=== PATIENT | male | born 2000 | race Caucasian/White ===

== ENCOUNTER 2021-07-14 23:28 | Emergency (ER) | payer OTHER, SELFPAY ==
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
[2021-07-14 23:34] VITALS: BP 139/72; PULSE 65; RESP 16; TEMP 36.4; O2SAT 97
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
[2021-07-15 00:57] VITALS: BP 122/64; PULSE 69; RESP 14; O2SAT 98
== END 2021-07-15 00:55 | disposition home or self-care (01) ==
PROVIDERS: Emergency Provider Emergency Medicine
DX: R04.0 Epistaxis (principal); S00.83XA Contusion of other part of head, initial encounter; Y04.0XXA Assault by unarmed brawl or fight, initial encounter
CPT/HCPCS: 70450; 70486; 72125; 99284

== ENCOUNTER 2021-12-30 19:34 | Emergency (ER) | payer OTHER, SELFPAY ==
[2021-12-30 19:36] VITALS: BP 141/75; PULSE 73; RESP 16; TEMP 36.7; O2SAT 97
--- NOTE | 2021-12-30 20:15 | ED.EAR ---
HPI - Ear Problem General Chief complaint: Ear Stated complaint: Left ear pain, ringing Time Seen by Provider: 12/30/21 19:40 Source: patient, family and RN notes reviewed History of Present Illness HPI Narrative: 21-year-old male presents emerge department for evaluation of persistent left ear pain. Patient states that he has had issues with earwax and impaction. Patient states he was attempting to clean up his left ear with a Q-tip when he feels that he worsened his left ear pain. Patient states his hearing is muffled in that ear. Patient denies any sharp pain but states he does have increased pressure. Patient denies any bleeding or discharge from the left ear. MD Complaint: ear pain Related Data Home Medications Medication Instructions Recorded Confirmed fluoxetine 20 mg PO DAILY 07/14/21 Allergies Allergy/AdvReac Type Severity Reaction Status Date / Time No Known Allergies Allergy Mild Verified 07/14/21 23:45 Review of Systems Review of Systems: CONSTITUTIONAL: Denies fever, chills, or sweats. EYES: Denies visual changes, redness, or discharge. ENT: Left ear pain CARDIOVASCULAR: Denies chest pain, palpitations, or edema. RESPIRATORY: Denies cough or dyspnea. GASTROINTESTINAL: Denies abdominal pain, nausea, vomiting, or diarrhea. GENITOURINARY: Denies dysuria or hematuria. SKIN: Denies rash or itching. All systems reviewed & are unremarkable except as noted in HPI and below Exam Narrative: APPEARANCE: Well appearing, no pain, no distress, well-nourished. HEAD: normocephalic, atraumatic. EYES: PERRLA/EOMI, conjunctivae clear. NOSE: Normal no drainage EARS: Left ear is initially impacted with cerumen. After irrigation TM is well-appearing. Mild erythema with no perforation. No fluid behind the TM. THROAT: Pharynx clear, no exudate. Course Course Emergency Course: After irrigation of the left ear with significant cerumen removed patient states that his symptoms are resolved. Patient denies any complaint. Patient states that his hearing is back to baseline. Patient was encouraged to have close follow-up with primary care physician. All questions concerns were addressed. Vital Signs Vital signs: Vital Signs Temperature 98.1 F 12/30/21 19:36 Pulse Rate 73 12/30/21 19:36 Respiratory Rate 16 12/30/21 19:36 Blood Pressure 141/75 H 12/30/21 19:36 Pulse Oximetry 97 12/30/21 19:36 Temperature 98.1 F 12/30/21 19:36 Pulse Rate 73 12/30/21 19:36 Respiratory Rate 14 12/30/21 20:54 Blood Pressure 141/75 H 12/30/21 19:36 Pulse Oximetry 97 12/30/21 19:36 Medical Decision Making Vital Signs Vital Signs: Vital Signs Temperature 98.1 F 12/30/21 19:36 Pulse Rate 73 12/30/21 19:36 Respiratory Rate 16 12/30/21 19:36 Blood Pressure 141/75 H 12/30/21 19:36 Pulse Oximetry 97 12/30/21 19:36 Temperature 98.1 F 12/30/21 19:36 Pulse Rate 73 12/30/21 19:36 Respiratory Rate 14 12/30/21 20:54 Blood Pressure 141/75 H 12/30/21 19:36 Pulse Oximetry 97 12/30/21 19:36 Discharge Plan Discharge Clinical Impression: Cerumen impaction Qualifiers: Laterality: left Qualified Code(s): H61.22 - Impacted cerumen, left ear Patient Disposition: Home, Self-Care Condition: Stable Instructions: Antibiotic Form, Carbamide Peroxide (Into the ear) Additional Instructions: Have close follow-up with your primary care physician. If you have any worsening symptoms or if you have any questions or concerns then please call or return to the emergency department Prescriptions: No Action fluoxetine 20 mg capsule 20 mg PO DAILY RF: 0 Follow-up/Referrals: Les Crespo MD [Primary Care Provider] -
[2021-12-30] MEDS: HYDROGEN PEROXIDE 3% SOLN(*SP) 473 ML BOTTLE (20:30)
[2021-12-30 20:54] VITALS: RESP 14
== END 2021-12-30 20:54 | disposition home or self-care (01) ==
PROVIDERS: Emergency Provider Emergency Medicine; PCP Emergency Medicine
DX: H61.22 Impacted cerumen, left ear (principal)
CPT/HCPCS: 69209; 99282; A9270

== ENCOUNTER 2023-06-27 21:45 | Emergency (ER) | payer OTHER, SELFPAY ==
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
[2023-06-27 21:58] VITALS: BP 138/71; PULSE 78; RESP 16; TEMP 36.4; O2SAT 97
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
[2023-06-28 01:43] VITALS: BP 130/62; PULSE 78; RESP 18; O2SAT 99
== END 2023-06-28 01:45 | disposition home or self-care (01) ==
LOC: ANHED 06-28 01:35
PROVIDERS: Emergency Provider Emergency Medicine; PCP Internal Medicine
DX: S09.90XA Unspecified injury of head, initial encounter (principal); M54.2 Cervicalgia; V89.2XXA Person injured in unspecified motor-vehicle accident, traffic, initial encounter
CPT/HCPCS: 70450; 72125; 99284

== ENCOUNTER 2023-08-01 01:04 | Day surgery (SDC) | payer OTHER, SELFPAY ==
[2023-07-25 12:22] VITALS: BMI 29.1
--- NOTE | 2023-07-25 12:33 | PC.NURSE ---
Report to the Outpatient Waiting Room, entrance under the green pavilion located off [facility], at time 0700 on date 08/01/23. Planned Procedure Time: 0900. Time changes happen often and if your time is changed the preop area will call you the afternoon before. - You and your visitor will be asked to self-screen and do not enter if you have any COVID symptoms. - A mask is optional within the hospital at this time. Patients may have clear liquids (water, carbonated beverages, clear teas, apple juice) until 3 hours prior to surgery with a maximum of 20 ounces. - No food from midnight until time of surgery Take the following medications with a SIP of water the morning of surgery: FLUOXETINE DO NOT STOP ANY OF YOUR OTHER PRESCRIPTION MEDICATIONS PRIOR TO SURGERY ?EXCEPT THE FOLLOWING Medications to discontinue per physician: N/A Date to take last dose: N/A Please no make-up, nail cook islander, hairspray, perfume, deodorant, or body powder the day of surgery. No jewelry (including any body piercings) or valuables the day of surgery, leave them at home. Please take a shower or bath the night before, or the morning of, surgery with an antibacterial soap. Wear comfortable, loose fitting clothing. - Jewelry must be removed prior to entering the operating room. Rings and piercings that are not removed may be cut off. - The hospital will not accept responsibility for valuables. - Please leave all valuables, including medications, at home the day of surgery. If you are going home after surgery, a licensed package delivery driver must drive you home. - NO public transportation without another adult if you receive anesthesia. - We recommend that an adult stay with you for 24 hours following discharge. - We also recommend that you do not drive, make important decision, drink alcoholic beverages, or take any drugs that were not prescribed by your health care provider for at least 24 hours after your discharge time. Follow any additional instructions given to you from your surgeon. If you or anyone in your household have experienced Covid symptoms in the past week, please notify your surgeon or the nurse liaison at the phone number below for possible testing. Telephone instructions given to PT - CLIFF PIERCE AND ARNOLD ANTONY and asked if any additional questions and then verbalized understanding. Patient advised to call surgeon office or pre surgery nurse liaison [phone] if any additional questions.
--- NOTE | 2023-07-31 17:46 | PM.IMHP ---
H&P: HPI History of Present Illness Date/Time: 07/31/23 17:46 Chief Complaint: Nasal obstruction nasal congestion septal deviation turbinate hypertrophy Narrative: planned procedure Review of Systems Review of Systems: All systems reviewed & are unremarkable except as noted in HPI and below [facility] Past Medical History Medical History TBI (traumatic brain injury) November 2019 Family History Family History Grandparent Alcoholism Depression Other Alcoholism Depression Other Alcoholism Depression Mother Depression Social History Social History Smoking status: Never smoker Smokeless tobacco user: chewing tobacco Smoking end date: 05/03/23 Alcohol intake: current Drinks per week: 2 Substance use: current Substance use type: marijuana Lack of Transportation: No Lack of Food: Never True Current Housing: I Have Housing Concerned About Future Housing: No Difficulty Paying Gas/Electric Bills: No Difficulty Paying for Meds: No Currently Unemployed: Decline to Answer Education: High School Diploma/GED Difficulty w/ Childcare or Family Care: No Living arrangements: with friend(s) Additional living arrangements comments: GIRLFRIEND Occupation/Education: occupation Gender identity (if verbalized by the patient): Male Spiritual care concerns: No Meds Home Medications and Allergies Home Medications Medication Instructions Recorded Confirmed Type fluoxetine 10 mg capsule 10 mg PO DAILY 04/21/23 07/25/23 History Allergies Allergy/AdvReac Type Severity Reaction Status Date / Time No Known Allergies Allergy Mild Verified 07/25/23 12:21 Exam Narrative: septal deviation turbinate hypertrophy Assessment and Plan Assessment and plan (1) Nasal septal deviation: Code(s): J34.2 - Deviated nasal septum Status: Acute Assessment and Plan: ?plan operating room endoscopic assisted septoplasty and turbinate reduction.? Risks were discussed including bleeding infection septal perforation need for further procedures to repair anything I do or to resolve any symptoms that remain.? Re hypertrophy of the turbinates.? Need for splint placement.? The inherent risks narcotic use.? Need for the use of antibiotic ointment which I provided prior to surgery.? The patient must refrain from strenuous activities including jujitsu for 2 weeks after surgery.? He voiced understanding of these risks and agreed. (2) Hypertrophy of both inferior nasal turbinates: Code(s): J34.3 - Hypertrophy of nasal turbinates Status: Acute
[2023-08-01] VITALS (12 sets, daily range): BP systolic 120–141; BP diastolic 61–79; PULSE 53–64; RESP 12–20; TEMP 36.4–36.6; O2SAT 94–100
[2023-08-01] MEDS: ACETAMINOPHEN 500 MG TABLET 1000 MG PO (06:42)
--- NOTE | 2023-08-01 07:22 | WPDHPUPDATE1 ---
History and Physical Update Update Date/Time: 08/01/23 07:22 History and Physical has been reviewed, including an updated exam of the patient. There are NO changes in the patient's condition. Risks, benefits, and alternatives have been discussed and questions answered. Patient agrees to proceed with procedure.
--- NOTE | 2023-08-01 07:50 | P.PNAN_ITS ---
Anes - Initial Pre Proc Eval Procedure: Operation Date: 08/01/23 08:15 Proposed Procedures p Septoplasty, - Kendell Ledesma MD s Bilateral Inferior Turbinectomy with Outfracture - Kendell Ledesma MD Date/Time: 08/01/23 07:50 Surgeon: Kendell Ledesma MD Pre Op Diagnosis: septal deviation, turbinate hypertrophy Patient Data Age: 22 Gender: M Height: 1.83 m Weight: 93.25 kg Last Vital Signs Temp 36.6 C 08/01/23 06:20 Pulse 60 08/01/23 06:20 Resp 20 08/01/23 06:20 BP 134/67 08/01/23 06:20 Pulse Ox 99 08/01/23 06:20 O2 Del Method Room Air 08/01/23 06:20 Allergies Allergy/AdvReac Type Severity Reaction Status Date / Time No Known Allergies Allergy Mild Verified 08/01/23 07:36 Home Medications Medication Instructions Recorded Confirmed Type fluoxetine 10 mg capsule 10 mg PO DAILY 04/21/23 07/25/23 History Patient hx anesthesia problems: none Family hx anesthesia problems: none Results Review: All pre-operative results and documents have been reviewed as part of the pre- operative evaluation. [facility] Past Medical History Medical History (Updated 06/29/23 @ 00:01 by Joe Enciso) TBI (traumatic brain injury) November 2019 Surgical History Surgical History (Updated 08/01/23 @ 07:50 by Abdias Hannon MD) Hx of tracheostomy Family History Family History Grandparent Alcoholism Depression Other Alcoholism Depression Other Alcoholism Depression Mother Depression Social History Social History Smoking status: Never smoker Smokeless tobacco user: chewing tobacco Smoking end date: 05/03/23 Alcohol intake: current Drinks per week: 2 Substance use: current Substance use type: marijuana Lack of Transportation: No Lack of Food: Never True Current Housing: I Have Housing Concerned About Future Housing: No Difficulty Paying Gas/Electric Bills: No Difficulty Paying for Meds: No Currently Unemployed: Decline to Answer Education: High School Diploma/GED Difficulty w/ Childcare or Family Care: No Living arrangements: with friend(s) Additional living arrangements comments: GIRLFRIEND Occupation/Education: occupation Gender identity (if verbalized by the patient): Male Spiritual care concerns: No Anes - Eval Final PreProcedure Day of Procedure 08/01/23 07:50 Patient weight: overweight Heart: regular rate and rhythm Lungs: clear to auscultation Airway: Mallampati scale class II and special considerations poor opening Neurological: alert and oriented Last oral intake: >/= 8 hours ASA classification: II Emergent: no Anesthetic plan: proceed Anesthesia type and monitoring: general ETT and standard monitoring Results Review: All pre-operative results and documents have been reviewed as part of the pre- operative evaluation. Informed Consent: The patient's anesthetic plan and its attendant risks and benefits were discussed with the patient/family/POA. Questions were solicited and answers provided to the satisfaction of the patient/family/POA.
[2023-08-01] MEDS: LACTATED RINGERS 1,000 ML 30 ML IV CONT ×2 (07:55→11:25)
[2023-08-01] MEDS: ceFAZolin 2 GM/D5W 50 ML 2 GM/50 ML BAG IVPB (08:15)
[2023-08-01] MEDS: LIDO 1%/EPINEPHRINE 1:100,000 20 ML VIAL 5 ML INFILTRATE (08:33)
[2023-08-01] MEDS: OXYMETAZOLINE HCL 0.05% NAS 15 ML BTL (*BKC) 1 SPRAY NASAL ×2 (08:33→12:23)
--- NOTE | 2023-08-01 10:46 | W.PM.PROC2 ---
Procedure Note - Detailed Date of Procedure 08/01/23 Pre-op Diagnosis septal deviation, turbinate hypertrophy Post-op Diagnosis Same Procedure Performed Inferior turbinate reduction with outfracture endoscopic assisted septoplasty Surgeon Kendell Ledesma MD Anesthesia General Indications See above Findings Severely deviated leftward septum large turbinates reduced there was tearing the right turbinate unfortunately Surgicel was placed along this septum looks great. Description of Procedure Patient identified consent verified preop. Patient brought operating. Time-out performed. General anesthesia induced endotracheal tube secured airway. Patient prepped draped position procedure confirmed. Second time-out performed. 13 cc 1% lidocaine 1 100,000 parts epinephrine checked bilateral nasal septum bilateral inferior turbinates. Sukh incision made left-sided 15 blade. Left nasal septal flap elevated with 7 [place] suction. Ostomy lysed crossover upfront leaving adequate strut. Right nasal septal flap elevated with 7 [place] suction. Deviated septum with [place] from [place] forceps [place] forceps and osteotome. Kill incision closer interrupted 5 0 fast gut sutures. High septum quilted. Turbinates reduced submucosal plane 2 point mm debrider. Fairly large tumor the right turbinate unfortunately I mean the mucosa still there just left linear tear down it. Turbinates then outfractured they were reduced bilaterally with the microdebrider. Surgicel was placed against any bleeding points on the turbinates mulberry tips cauterize anterior entry point cauterized. Kinney splints placed sutured anteriorly using a 5 0 sorry 3-0 nylon suture mattressed. Quilting stitch 4-0 plain. [place] incision closed with 5 0 fast. Blood loss 5 cc. I performed all dictated portions procedure no complications cured. Care patient given back to Anesthesiology. Patient taken to PACU. No complications. Estimated Blood Loss 5 Drains No Packing No Pathology None sent Complications No immediate complications Condition Stable Disposition PACU [facility] Billing Surgery - Charge Forward: Surgery Billing
[2023-08-01] MEDS: fentaNYL CITRATE INJ (*CRX) 100 MCG/2 ML VIAL 25 MCG IV PUSH ×4 (10:49→11:00)
[2023-08-01] MEDS: oxyCODONE HCL (*CRX) 5 MG TAB IR PO (12:18)
== END 2023-08-01 12:56 | disposition home or self-care (01) ==
PROVIDERS: PCP Internal Medicine; Visit Provider Otolaryngology
PROC: (CPT 30520; principal; 2023-08-01 08:15)
PROC: (CPT 30140; 2023-08-01 08:15)
DX: J34.3 Hypertrophy of nasal turbinates (principal); J34.2 Deviated nasal septum; F17.220 Nicotine dependence, chewing tobacco, uncomplicated; F12.90 Cannabis use, unspecified, uncomplicated; Z87.820 Personal history of traumatic brain injury
CPT/HCPCS: 30140; 30520; A9270; J0330; J0690; J1100; J2250; J2405; J2704; J3010; J7120